=== PATIENT | male | born 1955 | race Caucasian/White ===

== ENCOUNTER → 2021-04-03 | Outpatient (CLI) | payer MEDICARE ==
[~2021-04-03] MED LIST: CONTRAST GIVEN. MC PRN; IOHEXOL 240 MG/ML 50ML VIAL. PO ONE; IOHEXOL 300 MG/ML 100ML VIAL. IV ONE
--- NOTE | 2021-04-03 10:46 | RAD ---
CT ABDOMEN+PELVIS W dated 04/03/2021 8:00 AM Indication:Reason: VENTRAL HERNIA / Spl. Instructions: OMNI 300 INJ. 75 MLS, OMNI 240 30 MLS / Histor y: Comparison: No comparison is available. Technique: CT images were performed through the abdomen and pelvis following oral contrast ingestion and using an infusion of 75 L Omnipaque 300. One or more of the following individualized dose reduction techniques were utilized for this examinat ion: 1. Automated exposure control 2. Adjustment of the mA and/or kV according to patient size 3. Use of iterative reconstruction technique Findings: The lung bases are clear. There is calcification in the right middle lobe likely from prior granuloma tous infection. The liver and spleen are homogeneous in density and normal in configuration. There ma y be some fatty infiltration of the liver. Both kidneys enhance with contrast. No mass or obstruction is seen. The adrenal glands are not enlarged. The pancreas appears normal. No retroperitoneal or mes enteric adenopathy is seen. There is no apparent abdominal mass or inflammatory process. A normal tanesha endix is shown arising from the cecum. No abdominal wall hernia is seen. Images through the pelvis show no abnormality of the distal ureters or bladder. No pelvic or inguinal adenopathy is seen. There is no apparent pelvic mass or inflammatory process. IMPRESSION: No acute abnormality. No identified hernia. Electronically signed by: Osmin Borrero Jr., MD (04/03/2021 10:43 AM) [id number]
== END ==
LOC: CT 07:51
PROVIDERS: ATTEND Internal Medicine
DX: K43.9 Ventral hernia without obstruction or gangrene (principal)
CPT/HCPCS: 74177; Q9966; Q9967